=== PATIENT | female | born 1980 | race Caucasian/White ===

== ENCOUNTER 2019-01-10 00:27 | Emergency (ER) | payer BC ==
[~2019-01-10] VITALS: Ht 167.6 cm; Wt 90.9 kg
[2019-01-10 00:38] VITALS: Ht 167.6 cm; Wt 90.9 kg
[2019-01-10] MEDS ORDERED: SINGULAIR5 MG (00:40)
[2019-01-10] MEDS ORDERED: PROPRANOLOL HCL20 MG PO (00:40)
[2019-01-10] MEDS ORDERED: BUPROPION HCL150 M1 PO (00:40)
[2019-01-10] MEDS ORDERED: AMITRIPTYLINE100 MG PO (00:40)
[2019-01-10] MEDS ORDERED: ZANTAC300 MG PO (00:41)
[2019-01-10 01:11] LABS: BASOPHILS 0.2 % (0-2); EOSINOPHILS 0.2 % (0-7); HEMATOCRIT 38.3 % (36.0-48.0); HEMOGLOBIN 13.1 g/dL (12-16); IMMATURE GRANULOCYTES 0.2 % (0-5); LYMPHOCYTES 13.8 % (15-50); MCH 31.2 pg (26.0-34.0); MCHC 34.2 g/dL (31.0-37.0); MCV 91.2 fL (80.0-100.0); MONOCYTES 5.4 % (2-11); NEUTROPHILS 80.2 % (40-80); PLATELET COUNT 253 10x3/uL (130-400); RDW 13.3 % (11.5-14.5); WBC 17.6 10x3/uL (4.8-10.8)
[2019-01-10 01:27] LABS: ALBUMIN 3.1 g/dL (3.4-5.0); BILIRUBIN - TOTAL 0.24 mg/dL (0.2-1.3); CALCIUM 8.7 mg/dL (8.5-10.1); CARBON DIOXIDE 28.9 mmol/L (21.0-32.0); CREATININE - SERUM 1.1 mg/dL (0.6-1.3); POTASSIUM - SERUM 3.9 mmol/L (3.5-5.1); PROTEIN - SERUM 7.1 g/dL (6.4-8.2)
[2019-01-10 01:43] LABS: HCG SERUM NEGATIVE (NEGATIVE)
[2019-01-10 02:43] LABS: APPEARANCE CLEAR (CLEAR); BILIRUBIN NEGATIVE (NEGATIVE); COLOR YELLOW (YELLOW); GLUCOSE NEGATIVE (NEGATIVE); KETONE SMALL mg/dL (NEGATIVE); NITRITE NEGATIVE (NEGATIVE); PROTEIN NEGATIVE (NEGATIVE); UROBILINOGEN NORMAL (NORMAL)
[2019-01-10] MEDS ORDERED: HYDROCODON-ACE1 EAC7 PO (03:17)
[2019-01-10 03:35] VITALS: BP 110/70
== END 2019-01-10 03:35 | disposition home or self-care (01) ==
LOC: D.ER 00:27
PROVIDERS: Emergency Medicine
DX: R42 Dizziness and giddiness (principal); R10.32 Left lower quadrant pain